=== PATIENT | male | born 1990 | race Caucasian/White ===

== ENCOUNTER 2020-10-28 10:24 | Emergency (ER) | payer OTHER, SELFPAY ==
--- NOTE | 2020-10-28 10:30 | ED.GENADULT ---
HPI - General Adult General Chief complaint: Upper Respiratory Infection Stated complaint: cough Time Seen by Provider: 10/28/20 10:30 Source: patient Mode of arrival: ambulatory Limitations: no limitations History of Present Illness HPI narrative: 29-year-old male patient presents to the [facility] with complaints of nasal drainage and sinus congestion for the past 5 days. Patient states it started Saturday after he mowed the grass. Patient states he typically gets this every year at this time. Patient states he started using his Flonase and a sinus rinse which he states was getting a little bit better. Patient states in the morning he does have a slight cough but denies any shortness of breath. Patient states he has had some green phlegm that he has been coughing up and coming out of his nose that started today. Denies fevers, body aches or chills. Patient states he overall feels good just a little congested. Patient states he did take a Zyrtec this morning that was the first time he took Zyrtec. Patient states he has had 1 dose of the Covid vaccine. Denies being around anybody with Covid symptoms that he is aware of. Related Data Home Medications Medication Instructions Recorded Confirmed No Home Medications 10/28/20 10/28/20 Allergies Allergy/AdvReac Type Severity Reaction Status Date / Time No Known Allergies Allergy Verified 10/28/20 10:51 Review of Systems Review of Systems: Narrative: CONSTITUTIONAL: Denies fever, chills, or sweats. EYES: Denies visual changes, redness, or discharge. ENT: Positive rhinorrhea, congestion, denies sore throat, or otalgia. CARDIOVASCULAR: Denies chest pain, palpitations, or edema. RESPIRATORY: Positive mild cough, denies dyspnea. GASTROINTESTINAL: Denies abdominal pain, nausea, vomiting, or diarrhea. GENITOURINARY: Denies dysuria or hematuria. SKIN: Denies rash or itching. MUSCULOSKELETAL: Denies back pain, joint pain, or myalgia. NEUROLOGIC: Positive frontal headache, denies numbness, or weakness. PSYCHIATRIC: Denies anxiety or depression. [facility] Past Medical History Medical History (Updated 10/28/20 @ 11:02 by MARLEY Jarrett) Seasonal allergies Exam Narrative: Exam Narrative: GENERAL: Well-appearing, well-nourished, and in no acute distress. HEAD: Normocephalic, atraumatic. EYES: PERRLA and EOMI. ENT: Nares clear, no rhinorrhea or epistaxis. Mucous membranes moist. NECK: Supple. No lymphadenopathy CHEST: Clear to auscultation. No respiratory distress. HEART: Regular rate and rhythm. No murmur heard. Normal peripheral pulses. ABDOMEN: Soft, nontender, nondistended, normal active bowel sounds. EXTREMITIES: Normal range of motion. No edema. SKIN: Warm, dry, no rash. NEURO: No focal deficits. Alert and oriented x3. Course Reevaluation(s) Reevaluation #1: Reevaluated patient after his rapid Covid test has been resulted. Notified him that his rapid Covid today is negative. Discussed with him that I based on his symptoms I think this is most likely due to allergies and sinus drainage. Discussed with patient I want him to continue taking his Zyrtec daily and may use his Flonase once in the morning once before bed. Discussed with him he can take Benadryl to help him sleep at night as well. Discussed with patient if he develops low-grade fevers, chest congestion or worsening cough or shortness of breath I want him to come back for further evaluation. Patient verbalized understanding of this denies any other questions or concerns at this time. Date: 10/28/20 Time: 11:08 Vital Signs Vital signs: Vital Signs Temperature 36.9 C 10/28/20 10:38 Pulse Rate 76 10/28/20 10:38 Respiratory Rate 14 10/28/20 10:38 Blood Pressure 147/80 H 10/28/20 10:38 Pulse Oximetry 98 10/28/20 10:38 Temperature 36.9 C 10/28/20 10:38 Pulse Rate 76 10/28/20 10:38 Respiratory Rate 14 10/28/20 10:38 Blood Pressure 147/80 H 10/28/20 10:38 Pulse Oximetry 98 04/0
[2020-10-28 10:38] VITALS: BP 147/80; PULSE 76; RESP 14; TEMP 36.9; O2SAT 98
== END 2020-10-28 11:11 | disposition home or self-care (01) ==
PROVIDERS: Emergency Provider Nurse Practitioner Family
DX: J00 Acute nasopharyngitis [common cold] (principal); J01.90 Acute sinusitis, unspecified; J30.9 Allergic rhinitis, unspecified; Z20.822 Contact with and (suspected) exposure to COVID-19
CPT/HCPCS: 87426; 99213; C9803; G0463

== ENCOUNTER 2020-11-13 08:57 | Emergency (ER) | payer OTHER, SELFPAY ==
--- NOTE | ~2020-11-13 | XR_ITS ---
EXAMINATION: XR foot LT min 3V DATE: 11/13/2020 09:24 INDICATION: Left foot injury. TECHNIQUE: 4 views of left foot were obtained. COMPARISON: None. FINDINGS: Bone alignment is normal. No fracture. There is a 1.6 cm linear radiopaque foreign body ove rlying the calcaneal tuberosity. There is mild osteoarthritis of first metatarsophalangeal joint. IMPRESSION: 1. 1.6 cm linear radiopaque foreign body overlying the calcaneal tuberosity. Reviewed, dictated and finalized at location A.
[2020-11-13 09:02] VITALS: BP 129/88; PULSE 81; RESP 18; TEMP 37.7; O2SAT 100
--- NOTE | 2020-11-13 09:03 | ED.LOWEXIN ---
HPI - Extremity Injury (Lower) General Chief Complaint: Extremity Injury, Lower Stated Complaint: lt foot injury Time Seen by Provider: 11/13/20 09:08 Source: patient and RN notes reviewed Mode of arrival: ambulatory Limitations: no limitations History of Present Illness HPI Narrative: 30-year-old male presents with concern for left foot pain. He reports approximately 4 days ago he was mowing the lawn wearing steel toe boots, something flew out from under the lawnmower and hit his left inner heel area. He denies any piercing of a foreign body through the boot, however reports a laceration on the skin. Reports since then it is tender to touch, has become swollen, red. Reports a large amount of bleeding when the injury first happened. He denies any decreased sensation, range of motion, strength. MD complaint: foot injury Related Data Allergies Allergy/AdvReac Type Severity Reaction Status Date / Time No Known Allergies Allergy Verified 11/13/20 09:12 Review of Systems Review of Systems: Narrative: CONSTITUTIONAL: Denies malaise, chills, sweats, or fever. CARDIOVASCULAR: Denies chest pain, palpitations, or edema. RESPIRATORY: Denies cough or dyspnea. SKIN: Reports small laceration on the medial aspect of the heel of his left foot, surrounded by redness, swelling, tenderness, warmth MUSCULOSKELETAL: Reports left heel pain. Denies foot decreased sensation, range of motion, strength NEUROLOGIC: Denies numbness, weakness All systems reviewed & are unremarkable except as noted in HPI and below PMFSH Past Medical History Medical History (Updated 11/13/20 @ 09:39 by Angelica Kearney NP) Seasonal allergies Comments At time of signature, agree with nursing past medical, surgical, social and family history. There is no relevant family history pertinent to the presenting complaint Exam Narrative: Exam Narrative: GENERAL: Well-appearing, well-nourished, and in no acute distress. HEAD: Normocephalic, atraumatic. EYES: PERRLA, conjunctivae clear NECK: Supple. CHEST: Speaks in full sentences. No respiratory distress. HEART: Regular rate and rhythm. Normal and equal peripheral pulses. EXTREMITIES: Left foot, digits have normal strength and sensation, normal range of motion. Moderate medial edema, erythema to the medial aspect of the heel. 5/5 strength with ankle and digit flexion and extension. Normal sensation with sensitivity to light touch and pain. No point tenderness. No skin tenting, no devitalized tissue or atrophy, no trophic changes, no obvious deformity, alignment normal, nearby joints and structures intact. Distal pulses palpable and equal bilaterally, skin warm, dry, pink. Capillary refill less than 3 seconds. SKIN: Warm, dry, no rash. 0.5 cm superficial laceration noted to the medial aspect of the left heel started by erythema, induration, edema NEURO: Alert and oriented x3. PSYCH: Normal mood and affect Course Course Emergency Course: Patient is aware of diagnosis, understands and agrees to treatment plan. Anticipatory guidance given. Patient agrees to follow-up as directed and is aware of reasons to seek care at the emergency department. Portions of this record may have been created with voice recognition software Vital Signs Vital signs: Vital Signs Temperature 99.8 F H 11/13/20 09:02 Pulse Rate 81 11/13/20 09:02 Respiratory Rate 18 11/13/20 09:02 Blood Pressure 129/88 11/13/20 09:02 Pulse Oximetry 100 11/13/20 09:02 Temperature 99.8 F H 11/13/20 09:02 Pulse Rate 81 11/13/20 09:02 Respiratory Rate 18 11/13/20 09:02 Blood Pressure 129/88 11/13/20 09:02 Pulse Oximetry 100 11/13/20 09:02 Reviewed. Pt has been instructed to follow up with his primary care provider within the next week regarding his elevated blood pressure today. MDM - Extremity Injury (Lower) Imaging Data My impression: Images reviewed, interpreted by radiologist, agree, see report. Radiologist's impression: EXAMI
== END 2020-11-13 09:42 | disposition home or self-care (01) ==
PROVIDERS: Emergency Provider Nurse Practitioner
DX: S90.852A Superficial foreign body, left foot, initial encounter (principal); X58.XXXA Exposure to other specified factors, initial encounter
CPT/HCPCS: 73630; 99213; G0463

== ENCOUNTER 2021-12-24 17:53 | Emergency (ER) | payer OTHER, SELFPAY ==
--- NOTE | 2021-12-24 17:56 | ED.URI ---
HPI - URI/Sore Throat General Chief Complaint: Upper Respiratory Infection Stated Complaint: cough,stuffy nose,drainage Time Seen by Provider: 12/24/21 18:22 Source: patient and RN notes reviewed Mode of arrival: ambulatory Limitations: no limitations History of Present Illness HPI Narrative: 31-year-old male presents with concern for 3-week history of nasal congestion, drainage, cough. Reports sputum turned green. He reports he has been using several [id number] remedies consistently including sinus rinses but he is not feeling any better. He denies fever, body aches, chills, sweats. Reports has had to negative code test. Reports family members at home have similar illness. MD elicited complaint: cough and nasal congestion Related Data Allergies Allergy/AdvReac Type Severity Reaction Status Date / Time No Known Allergies Allergy Verified 12/24/21 18:00 Review of Systems Review of Systems: CONSTITUTIONAL: Reports malaise. Denies chills, sweats, or fever. EYES: Denies visual changes, redness, or discharge. ENT: Reports rhinorrhea, congestion, sinus pain. Reports otalgia and sore throat. CARDIOVASCULAR: Denies chest pain, palpitations, or edema. RESPIRATORY: Reports persistent cough. Denies dyspnea. GASTROINTESTINAL: Denies abdominal pain, nausea, vomiting, diarrhea SKIN: Denies rash or itching. MUSCULOSKELETAL: Denies myalgia. NEUROLOGIC: Denies headache. All systems reviewed & are unremarkable except as noted in HPI and below PMFSH Past Medical History Medical History (Updated 12/24/21 @ 18:29 by Angelica Kearney NP) Seasonal allergies Comments At time of signature, agree with nursing past medical, surgical, social and family history. There is no relevant family history pertinent to the presenting complaint Exam Narrative: GENERAL: Nontoxic-appearing and in no acute distress. HEAD: Normocephalic EYES: PERRLA, conjunctivae clear ENT: Nares clear, turbinates edematous and erythematous, sinus tenderness. Mucous membranes moist. TM pearly ricks with dull light reflex bilaterally; no tragal tenderness. Oropharynx not erythematous without lesions. Tonsils not enlarged and without exudate, no drooling, no hoarseness, no trismus, uvula midline. NECK: Supple. No lymphadenopathy CHEST: Clear to auscultation, breath sounds equal. No wheezing, rhonchi, rales, or stridor. No respiratory distress, speaks in full sentences. HEART: Regular rate and rhythm. No murmur heard. SKIN: Warm, dry, no rash. NEURO: Alert and oriented x3. PSYCH: Normal mood and affect Course Course Emergency Course: Patient is aware of diagnosis, understands and agrees to treatment plan. Anticipatory guidance given. Patient agrees to follow-up as directed and is aware of reasons to seek care at the emergency department. Portions of this record may have been created with voice recognition software Level of Care: Express Care Visit Vital Signs Vital signs: Reviewed. MDM - URI/Sore Throat MDM Narrative Medical decision making narrative: Differential diagnosis considered: Gonzalez virus, strep pharyngitis, allergic rhinitis, upper respiratory tract infection, sinusitis, rhinosinusitis, nasopharyngitis. viral pharyngitis, otitis media, otitis externa, pneumonia, bronchitis, viral cough syndrome, viral syndrome, and influenza. Exam findings show no acute concerns or changes; patient is non-toxic appearing and is in no distress. Patient is appropriate for outpatient treatment and follow-up. Lab Data Attestation: I reviewed the patient's lab results. Critical Care Time Critical Care Time Critical Care Time: No Discharge Plan Discharge Clinical Impression: Sinobronchitis Patient Disposition: Home, Self-Care Condition: Stable Instructions: Antibiotic Form, Sinusitis (ED) Additional Instructions: Take medications as prescribed Some cough medicine may make you tired, know how it affects you before you work, drive, make important decisio
[2021-12-24 18:05] VITALS: BP 146/98; PULSE 105; RESP 18; TEMP 37.2; O2SAT 99
== END 2021-12-24 18:38 | disposition home or self-care (01) ==
PROVIDERS: Emergency Provider Nurse Practitioner
DX: J32.9 Chronic sinusitis, unspecified (principal); J40 Bronchitis, not specified as acute or chronic
CPT/HCPCS: 99213; G0463